=== PATIENT | female | born 1970 | race Two or more races ===

== ENCOUNTER 2020-05-02 09:34 | Emergency (ER) | payer BC ==
[~2020-05-02] VITALS: Ht 160 cm; Wt 78.5 kg
[~2020-05-02 09:34] MED LIST: BUTA-91 PO; CARI250T PO; DICY20TA38 PO; DYA375C PO; LANS30CA57 PO; LEVOTHYROXINE PO; LORA2TAB89; ONDA-144 PO; OXYC10TA44 PO; QUET100T38 PO; TRAZ1TAB12 PO; ZOLP10TA PO
[2020-05-02 10:53] VITALS: BP 109/48
[2020-05-02] MEDS ORDERED: ACETAMINOPHEN 500 MG TAB PO ONE (11:00)
== END 2020-05-02 11:32 | disposition home or self-care (01) ==
LOC: ER 09:34
DX: S09.90XA Unspecified injury of head, initial encounter (principal); F17.210 Nicotine dependence, cigarettes, uncomplicated; X58.XXXA Exposure to other specified factors, initial encounter; Y93.89 Activity, other specified; Y92.89 Other specified places as the place of occurrence of the external cause; Y99.8 Other external cause status
CPT/HCPCS: 70450